=== PATIENT | female | born 1995 | race Caucasian/White ===

== ENCOUNTER 2023-04-20 13:18 | Emergency (ER) | payer OTHER | END 2023-04-20 14:00 | disposition home or self-care (01) | LOC: LB.ED 13:18 | DX: T63.441A Toxic effect of venom of bees, accidental (unintentional), initial encounter (principal); Z91.013 Allergy to seafood; Z91.018 Allergy to other foods; Z91.011 Allergy to milk products | CPT/HCPCS: 99283 ==